=== PATIENT | female | born 1985 | race Hispanic/Latino ===

== ENCOUNTER 2017-07-21 07:42 | Day surgery (SDC) | payer OTHER ==
[2017-07-20 14:58] LABS: BASOPHILS % (AUTO) 0.6 % (0.0-5.0); EOSINOPHILS % (AUTO) 0.3 % (0.0-8.0); HEMATOCRIT 36.5 % (36-48); LYMPHOCYTES % (AUTO) 23.3 % (21.0-51.0); MEAN CORPUSCULAR HEMOGLOBIN 28.5 pg (27.0-33.0); MEAN CORPUSCULAR HGB CONC 33.7 g/dL (32.0-36.0); MEAN CORPUSCULAR VOLUME 84.7 fL (79-99); MONOCYTES % (AUTO) 5.1 % (3.0-13.0); NEUTROPHILS % (AUTO) 70.7 % (40.0-77.0); PLATELET COUNT (AUTO) 390 K/uL (130-400); RED BLOOD CELL COUNT(AUTO) 4.31 MIL/uL (4.00-5.50); WHITE BLOOD COUNT (AUTO) 9.3 K/uL (4.8-10.8)
[2017-07-20 15:02] VITALS: BP 118/67
[~2017-07-21] VITALS: Ht 149.9 cm; Wt 84.8 kg
[2017-07-21] VITALS (17 sets, daily range): BP systolic 97–144; BP diastolic 67–78
[~2017-07-21 07:42] MED LIST: CEFAZOLIN SODIUM 1 GM VIAL IVP SCH; LACTATED RINGERS 1000ML 1,000 ML IV SCH; TRAM50TA4 PO
[2017-07-21] MEDS ORDERED: CHOL500050 PO (08:39)
[2017-07-21] MEDS ORDERED: OMEP40CA37 PO (08:40)
[2017-07-21] MEDS ORDERED: PROPOFOL 10 MG/ML 20ML VIAL IV ONE (09:31)
[2017-07-21] MEDS ORDERED: FENTANYL CITRATE PF 50 MCG/1 ML 2ML VIAL ONE (09:32)
[2017-07-21] MEDS ORDERED: MIDAZOLAM HCL 1 MG/ML 2ML VIAL ONE (09:32)
[2017-07-21] MEDS ORDERED: MEPERIDINE-PF 50 MG/ML SYG ONE ×2 (10:29→10:53)
== END 2017-07-21 12:15 | disposition home or self-care (01) ==
LOC: DAH 07:42
PROVIDERS: ATTEND Specialist
DX: N84.0 Polyp of corpus uteri (principal)
CPT/HCPCS: 36415; 49320; 58120; 84703; 85025; 86850; 86900; 86901; 88305; A4215; A4351; C1769 ×2; J2175 ×2; J2250; J2704; J3010; J7030; J7120